=== PATIENT | male | born 1945 | race Caucasian/White ===

== ENCOUNTER 2017-05-27 10:33 | Observation (INO) | payer BC, OTHER ==
[2017-05-27] VITALS (8 sets, daily range): BP systolic 122–140; BP diastolic 64–72; PULSE 44–54; TEMP 36.4–36.8; O2SAT 95–99; Ht 182.9 cm; Wt 82.0 kg
[~2017-05-27] VITALS: Ht 182.9 cm; Wt 82.0 kg
[2017-05-27] MEDS: CEFAZOLIN 2000MG IV PUSH 10 ML IV SCH ×2 (06:00→14:04)
[~2017-05-27 10:33] MED LIST: LACTATED RINGER'S 1000ML IV SCH; PATIENT'S ALLERGY INFO NEEDS ENTERED SCH; PATIENT'S HEIGHT AND/OR WEIGHT NEEDED SCH; VANCOMYCIN 1GM/270ML NSS 270 ML IV SCH
[2017-05-27] MEDS ORDERED: DAPA1TAB5 PO (11:29)
[2017-05-27] MEDS ORDERED: CYAN500T13 PO (11:29)
[2017-05-27] MEDS ORDERED: ATOR10TA82 PO (11:29)
[2017-05-27] MEDS ORDERED: WARF2TAB8 PO (11:29)
[2017-05-27] MEDS ORDERED: VALS320T PO (11:29)
[2017-05-27] MEDS ORDERED: METO50TA7 PO (11:29)
[2017-05-27] MEDS ORDERED: LNX125 PO (11:29)
[2017-05-27] MEDS ORDERED: SPIR25TA PO (11:29)
[2017-05-27] MEDS ORDERED: FURO80TA63 PO (11:29)
[2017-05-27] MEDS ORDERED: FLM4 PO (11:29)
[2017-05-27] MEDS ORDERED: PRLSR20 PO (11:29)
[2017-05-27] MEDS ORDERED: PRS5 PO (11:29)
[2017-05-27] MEDS ORDERED: FRS/40 PO (11:31)
[2017-05-27] MEDS ORDERED: NTRGSL/4 UT (11:32)
[2017-05-27] MEDS ORDERED: INSU1INJ33 SC (11:39)
[2017-05-27] MEDS ORDERED: PROPOFOL IV EMULSION 10 MG/ML 20 ML VIAL IV ONE (11:51)
[2017-05-27] MEDS ORDERED: LIDOCAINE HCL 2% 2 ML VIAL (20MG/ML) ONE (11:51)
[2017-05-27] MEDS ORDERED: FENTANYL CITRATE INJ 50 MCG/1 ML 2 ML VIAL ONE ×2 (11:52→12:59)
[2017-05-27] MEDS ORDERED: MIDAZOLAM HCL 1 MG/ML 2ML VIAL ONE ×2 (11:52→12:41)
--- NOTE | 2017-05-27 12:11 | Procedure Note ---
Pre-Mod Sedation Assessment General Date of Moderate Sedation: May 27, 2017. Vital Signs: Vital Signs Past 12 Hours Date Time Temp Pulse Resp B/P (MAP) Pulse Ox O2 Delivery O2 Flow Rate FiO2 05/27/17 11:42 36.5 54 20 140/69 (92) 98 Room Air Review Cardiovascular: regular rate, rhythm, no murmur Abdomen: soft Lungs: lungs clear Airway Class: II Pre-Sedation Airway Assessment Oral Cavity: Dentures Short Thick Neck: No Hx of Sleep Apnea: Yes Smoking Status: Former Smoker Mallampati Classification: Class II ASA Classification: Class II Procedure Planning Contraindications-for Mod Sed: None Yes Notes The planned sedation has been discussed with the patient and consent obtained. I have identified the patient, determined the appropriateness of sedation and have assessed the patient immediately prior to the procedure. All medicine(s) and interventions are by my order.
--- NOTE | 2017-05-27 12:11 | History & Physical Bridge Note ---
H&P Re-Evaluation Bridge Note: I have examined the patient, reviewed the History & Physical and in the interval since the performance of the History & Physical I have noted the following changes of clinical significance: No changes noted
[2017-05-27] MEDS ORDERED: MIDAZOLAM HCL 5 MG/ML 1 ML VIAL ONE (12:59)
[2017-05-27] MEDS ORDERED: LIDOCAINE HCL 1% 20 ML VIAL ONE (12:59)
[2017-05-27] MEDS ORDERED: BUPIVACAINE 0.5 % 5 MG/1 ML MPF 30ML VIAL ONE (13:00)
[2017-05-27] MEDS ORDERED: BACITRACIN 50000 UNIT VIAL ONE (13:00)
--- NOTE | 2017-05-27 14:22 | Procedure Note ---
Post-Mod Sedation Assessment General Date of Moderate Sedation May 27, 2017. Vital Signs: Vital Signs Past 12 Hours Date Time Temp Pulse Resp B/P (MAP) Pulse Ox O2 Delivery O2 Flow Rate FiO2 05/27/17 14:15 60 16 118/72 (87) 94 Room Air 05/27/17 14:00 43 16 112/67 (82) 94 Room Air 05/27/17 11:42 36.5 54 20 140/69 (92) 98 Room Air Review - Discharge Criteria Vital Signs Stable: Yes Alert/Oriented/Conversant: Yes Returned to Baseline Mental St: Yes Nausea Absent/Minimal: Yes Pain/Discomfort/Absent/Minimal: Yes Normal/Baseline Respirations: Yes Active Bleeding?: No Pt Received D/C Instructions: N/A Prescriptions Given: None Specific Proced. D/C Criteria Distal Pulses Present (Cardiac: N/A Groin site assessed-Card Cath: N/A Voided Prior To Discharge: N/A Discharged Patients Adult Escort/Transportation: N/A
--- NOTE | 2017-05-27 14:23 | [facility] Post Operative Brief Note ---
Immediate Operative Summary Operative Date May 27, 2017. Pre-Operative Diagnosis icm Post-Operative Diagnosis same Procedure(s) Performed single chamber rate responsive ICD Surgeon sonal altamirano Commercial Painter Surgeon(s) none Estimated Blood Loss 5cc Findings see official report Fluids (cc crystalloids) 300cc Specimens none Drains none Anesthesia 2mg versed Complication(s) None Disposition PCU
[2017-05-27] MEDS ORDERED: NITROGLYCERIN 0.4 MG SL PER TAB CHARGE UT PRN (14:30)
[2017-05-27] MEDS ORDERED: ACETAMINOPHEN 325 MG TAB PO PRN (14:30)
--- NOTE | 2017-05-27 14:38 | Discharge Instructions ---
Discharge Instructions Date of Service May 27, 2017. Admission Reason for Admission: Ischemic Cardiomyopathy, A-Fib Discharge Discharge Diagnosis / Problem: ICM Discharge Goals Goal(s): Improve function Activity Recommendations Activity Limitations: as noted below Lifting Limitations: no more than 10 pounds (do not lift the left elbow over the left shoulder for 1 month; do not lift more than 10 pounds with the left arm for 2 weeks) Shower/Bathe: tomorrow Driving or Machine Use: resume 1 day after discharge . Instructions / Follow-Up Instructions / Follow-Up ACTIVITY RECOMMENDATIONS: * Do not raise affected arm over head for 4 weeks. SPECIAL CARE INSTRUCTIONS: * If bleeding occurs, apply direct pressure to area for 5 minutes. * Call your doctor if you have severe pain, fever, drainage or bleeding at site. * Keep dry for 24 hours. * Keep any scheduled doctor's appointment. * Implant Card - hand held device with website information given. SKIN IRRITATION: * You may experience some redness and/or swelling in the area where radiation was administered. If any skin irritation occurs, please contact your family physician. FOLLOW UP VISIT: Keep any scheduled doctor appointments. Current Hospital Diet Patient's current hospital diet: AHA Diet (Heart Healthy), Low Sodium Diet (2gm Na), Diabetes Type 2 Diet Discharge Diet Recommended Diet: AHA Diet (Heart Healthy), Low Sodium Diet (2gm Na), Diabetes Type 2 Diet Procedures Procedures Performed: single chamber rate responsive ICD Pending Studies Studies pending at discharge: no Medical Emergencies . Who to Call and When: Medical Emergencies: If at any time you feel your situation is an emergency, please call 911 immediately. . Non-Emergent Contact Non-Emergency issues call your: Regulatory Lead . . "Provider Documentation" section prepared by Angela Rojas. . VTE Core Measure Inpt VTE Proph given/why not?: Warfarin (Coumadin)
--- NOTE | 2017-05-27 14:42 | Discharge Summary ---
Discharge Summary Date of Service May 27, 2017. Discharge Summary Admission Date: 05/27/2017 Discharge Date: May 28, 2017 Discharge Disposition: Home Principal Diagnosis: ICM Secondary Diagnoses/Problems: Chronic atrial fibrillation on coumadin and toprol [id number] CAD h/o CABG x5 as well as PCIs in the past PVCs Chronic systolic heart NYHA Class III HTN Prior CVA DM CONNOR Procedures: single chamber ICD Medication Reconciliation Continued Medications: Atorvastatin (Lipitor) 10 Mg Tab 10 MG PO Q2D, TAB Cyanocobalamin (Vitamin B12 500MCG) 500 Mcg Tab 2500 MCG PO DAILY, TAB Dapagliflozin-Metformin HCl (Xigduo Xr 5-1000 mg) 1 Tab Tab 1 TAB PO DAILY Digoxin (Digoxin) 0.125 Mg Tab 0.125 MG PO DAILY Finasteride (Finasteride) 5 Mg Tab 5 MG PO DAILY Furosemide (Lasix) 80 Mg Tab 80 MG PO DAILY, TAB Furosemide (Lasix) 40 Mg Tab 40 MG PO NOON, TAB Insulin Degludec (Tresiba Flextouch) 100 Unit/Ml Inj 40 UNITS SC HS Metoprolol Succ (Toprol Xl) (Toprol-Xl) 50 Mg Tabcr 50 MG PO DAILY, #30 TAB Nitroglycerin (Nitrostat) 0.4 Mg Tab 0.4 MG UT PRN, BTL Omeprazole (Prilosec) 20 Mg Capcr 40 MG PO DAILY, CAP Spironolactone (Aldactone) 25 Mg Tab 25 MG PO DAILY, TAB Tamsulosin HCl (Tamsulosin HCl) 0.4 Mg Cap 0.4 MG PO DAILY Valsartan (Diovan) 320 Mg Tab 320 MG PO DAILY, TAB Warfarin Sod (Jantoven) 2 Mg Tab 2 MG PO DAILY, TAB 1 or 2 tabs daily as directed Admission Information Physical Exam (per Admitting): aaox3, NAD NC/AT, EOMI Supple, No JVD irregular, irregular S1/S2, bradycardic CTA b/l no w/r/r soft NT/ND No edema b/l LE Hospital Course Pt admitted for elective ICD implant due to ICM. He underwent procedure without any complications. Monitored overnight and discharged home in stable condition following morning. Patient seen and examined at the bedside today 05/28/17. He offers no complaints. See progress note. Patient will be discharged home with follow-up as scheduled. Activity restrictions reviewed with patient and his family prior to discharge. Shlomo Valentin DO, [facility] Total time spent on discharge = 30 minutes This includes examination of the patient, discharge planning, medication reconciliation, and communication with other providers. Discharge Instructions ACTIVITY RECOMMENDATIONS: * Do not raise affected arm over head for 4 weeks. SPECIAL CARE INSTRUCTIONS: * If bleeding occurs, apply direct pressure to area for 5 minutes. * Call your doctor if you have severe pain, fever, drainage or bleeding at site. * Keep dry for 24 hours. * Keep any scheduled doctor's appointment. * Implant Card - hand held device with website information given. SKIN IRRITATION: * You may experience some redness and/or swelling in the area where radiation was administered. If any skin irritation occurs, please contact your family physician. FOLLOW UP VISIT: Keep any scheduled doctor appointments.
[2017-05-27] MEDS ORDERED: GLUCOSE 10 TABS/TUBE PO PRN (15:15)
[2017-05-27] MEDS ORDERED: GLUCOSE 40% GEL 15 GM TUBE PO PRN (15:15)
[2017-05-27] MEDS ORDERED: DEXTROSE 50% 50 ML SYR IV PRN (15:15)
[2017-05-27] MEDS ORDERED: GLUCAGON FOR INJ 1 MG VIAL SQ PRN (15:15)
[2017-05-27 15:39] LABS: HEMATOCRIT 40.2 % (42-52); MEAN CELL VOLUME 92.8 fL (80-100); MEAN CORPUSCULAR HEMOGLOBIN 30.5 pg (25-34); MEAN PLATELET VOLUME 10.4 fL (7.4-10.4); PLATELET COUNT 250 K/uL (130-400); RED BLOOD COUNT 4.33 M/uL (4.7-6.1); WHITE BLOOD COUNT 8.27 K/uL (4.8-10.8)
[2017-05-27] MEDS ORDERED: IV FLUIDS COMPLETED PRN (15:45)
--- NOTE | 2017-05-27 15:48 | OPERATIVE REPORT ---
DATE OF OPERATION: 05/27/2017 PREOPERATIVE DIAGNOSIS: Ischemic cardiomyopathy. POSTOPERATIVE DIAGNOSIS: Same. PROCEDURE: Single chamber rate responsive implantable cardiac defibrillator under fluoroscopic guidance. SURGEON: Dr. Angela Rojas. WALLBOARD WORKER: None. ANESTHESIA: Monitored conscious sedation given under my supervision administered by Ramonita Dickey. Start time 1318, end time 1400. A total of 2 mg of Versed. IV FLUIDS: 300 cc. ANTIBIOTICS: Two grams of Ancef. ESTIMATED BLOOD LOSS: 5 mL. COMPLICATIONS: None. URINE OUTPUT: Not applicable. SPECIMENS: None. FINDINGS: See below. DRAINS: None. INDICATIONS: This is a 71-year-old gentleman who has a past medical history for coronary artery disease and underwent a CABG in the past with LYNCH to LAD, KRYSTAL to OM1, left-right radial to PDA. He also has had PCI to the LAD in 2003 as well as to the RCA in 2006, chronic atrial fibrillation on Coumadin and Toprol, CHADS2-VASc score is 5, chronic systolic heart failure, [place] Heart Association class 3, ischemic cardiomyopathy, ejection fraction 20%, hyperlipidemia, hypertension, PVCs, prior CVA, diabetes and obstructive sleep apnea. Due to his ischemic cardiomyopathy he was recommended an implantable cardiac defibrillator. CONSENT: Consent was obtained prior to the patient going into the electrophysiology lab. The patient was informed of risks, benefits, alternatives to the procedure. Risks include but not limited to sudden cardiac , cardiac arrhythmias, cerebrovascular accident, myocardial infarction, injury to the blood vessels, chamber of the heart, lungs, bleeding and infection. The patient understood these risks and agreed to the procedure as planned. Informed consent was obtained. DESCRIPTION OF THE PROCEDURE: The patient was brought into the electrophysiology lab in a fasting state. He was connected to continuous cardiac monitoring. A timeout was performed to ensure patient's identity and procedure correctly. The patient was prepped and draped over the left infraclavicular space in normal surgical standard fashion. Moderate conscious sedation was given throughout the procedure for patient's comfort level under my supervision. Hubert precautions maintained throughout the procedure. Twenty mL of 1% lidocaine, bupivacaine mixture were given in the left deltopectoral. Incision was made in left deltopectoral groove. Blunt dissection was performed down to identify the cephalic vein. The cephalic vein was identified and isolated using 0 silk ties. The vein was nicked with the 11 blade and a Glidewire was inserted without any resistance. A 9.5 Mongolian sheath was inserted over the Glidewire without any resistance, dilator and Glidewire were removed and the right ventricular defibrillator lead was then advanced into the right ventricle and positioned into the right ventricular apex under fluoroscopic guidance. There was adequate pacing and sensing thresholds and no diaphragmatic stimulation with high output pacing. The 9.5 Mongolian sheath was peeled away and lead was fixated to pectoralis muscle using 0 silk suture. An additional 10 mL of 1% lidocaine, bupivacaine mixture were given in the pectoralis fascia. Then using blunt dissection within the fascia over the pectoralis muscle, a defibrillator pocket was created. The pocket was flushed with copious amounts of bacitracin saline wash and inspected for hemostasis. The defibrillator was then attached to the leads making sure that the pins were in appropriate position, passed the set screws and set screws were then tightened. The defibrillator was then placed in the pocket, making sure that the leads were lying flat beneath the device. A stay stitch using 0 silk suture was used to secure the device to the pectoralis muscle. The incision was closed in a 3-layer fashion using 2-0 Vicryl interrupted sutures followed by 3-0 Vicryl interrupted suture followed by a 4-0 Monocryl running stitch and Dermabond was applied. EQUIPMENT: 1. [employer] Evera MRI XT VR SureScan, [id number], serial number [id number]. 2. Right ventricular lead was a Medtronic 6935M-62 cm, serial number [id number]. INTRAOPERATIVE TESTING: Right ventricular lead, R waves are 10.6 millivolts, impedance 676 ohms, threshold 0.4 volts at 0.5 milliamps. FINAL MEASUREMENTS THROUGH THE DEVICE: Right ventricular lead R-wave 10.6 millivolts, impedance 570 ohms, threshold 0.5 volts at 0.4 milliseconds. The RV coil impedance was 70 ohms. FINAL PARAMETERS: VVI 40. Right ventricular amplitude 3.5 volts, pulse width 0.4 milliseconds, sensitivity 0.3 millivolts. A VT monitor zone at 133 beats per minute with the detection intervals 32 with a VT zone at 176 beats per minute, detection interval of 16 and a VF zone at 200 beats per minute, detection interval 30 out of 40 beats. IMPRESSION: Successful implantation of single chamber rate responsive implantable cardiac defibrillator under fluoroscopic guidance secondary to ischemic cardiomyopathy. PLAN: Monitor patient overnight, 12-lead ECG, chest x-ray. He is not allowed to lift left elbow or left shoulder for 1 month. He cannot lift more than 10 pounds with the left arm for 2 weeks. He can shower tomorrow, let water run over the incision, do not scrub it. He can continue his home medications. He should follow up in our [place] office for device and wound check in 7-10 days. I attest to the content of the Intraoperative Record and any orders documented therein. Any exception s are noted below.
[2017-05-27 15:56] LABS: MEAN CORPUSCULAR HGB CONC 32.8 g/dl (32-36)
[2017-05-27] MEDS ORDERED: DIGOXIN 0.125 MG TAB PO SCH (16:00)
[2017-05-27 16:02] LABS: INR 1.5 (0.9-1.1); PROTHROMBIN TIME (PATIENT) 16.8 SECONDS (9.0-12.0)
[2017-05-27] MEDS ORDERED: WARFARIN SOD 4 MG TAB PO SCH (17:00)
[2017-05-27 17:26] LABS: CREATININE 1.14 mg/dl (0.60-1.40)
[2017-05-27] MEDS ORDERED: ATORVASTATIN 10 MG TAB PO SCH (20:00)
[2017-05-27] MEDS ORDERED: INSULIN GLARGINE SOLOSTAR 100 UNITS/ML 3 ML PEN SC SCH (21:00)
[2017-05-28 00:22] VITALS: BP 114/57; PULSE 42; TEMP 36.5; O2SAT 94
[2017-05-28 04:00] VITALS: O2SAT 95
[2017-05-28 04:06] VITALS: BP 113/64; PULSE 49; TEMP 36.6; O2SAT 95
[2017-05-28 06:37] LABS: INR 1.3 (0.9-1.1); PROTHROMBIN TIME (PATIENT) 14.3 SECONDS (9.0-12.0)
--- NOTE | 2017-05-28 07:22 | DIAGNOSTIC IMAGING REPORT ---
CHEST 2 VIEWS ROUTINE CLINICAL HISTORY: EXACT TIME ORDERED Evaluate for pneumothorax and lead placement COMPARISON STUDY: None FINDINGS: Prior median sternotomy. Massive cardiomegaly. Permanent unipolar cardiac pacemaker/fibrillator. Lungs are clear. Diaphragms smooth. IMPRESSION: Permanent unipolar cardiac pacemaker/fibrillator placed in good position. No evidence pneumothorax. The above report was generated using voice recognition software. It may contain grammatical, syntax or spelling errors. Electronically signed by: Enrique Callahan M.D. 05/28/2017 7:20 AM Dictated Date/Time: 05/28/2017 7:18 AM
[2017-05-28 07:52] VITALS: BP 136/66; PULSE 50; TEMP 36.9; O2SAT 97
[2017-05-28] MEDS: METOPROLOL SUCC 50MG EXT REL TAB PO SCH ×2 (08:03→10:25)
[2017-05-28] MEDS ORDERED: XIGDUO PO SCH (09:00)
[2017-05-28] MEDS ORDERED: TAMSULOSIN HCL 0.4 MG CAP PO SCH (09:00)
[2017-05-28] MEDS ORDERED: VALSARTAN 80 MG TAB PO SCH (09:00)
[2017-05-28] MEDS ORDERED: FUROSEMIDE 80 MG TAB PO SCH (09:00)
[2017-05-28] MEDS ORDERED: PANTOprazole SOD 40 MG TAB PO SCH (09:00)
[2017-05-28] MEDS ORDERED: CYANOCOBALAMIN 2,500 MCG SUBL TAB PO SCH (09:00)
[2017-05-28] MEDS ORDERED: SPIRONOLACTONE 25 MG TAB PO SCH (09:00)
[2017-05-28] MEDS ORDERED: FINASTERIDE 5 MG TAB PO SCH (09:00)
[2017-05-28 09:55] VITALS: BP 136/66; PULSE 50; TEMP 36.9; O2SAT 97
--- NOTE | 2017-05-28 11:09 | CARDIOLOGY PROGRESS NOTE ---
DATE: 05/28/2017 SUBJECTIVE: The patient is a 71-year-old gentleman who is admitted for elective single-chamber rate response and ICD implantation. The procedure was performed on May 27 without complications. Procedure was performed by Dr. Rojas. He has been resting comfortably overnight. The patient is feeling well this morning. Denies chest discomfort or unusual shortness of breath. He is anxiously awaiting discharge. Family is present at the bedside. Telemetry demonstrates atrial fibrillation with intermittent ventricular pacing. Pacemaker site is clean, dry, and intact. The patient denies lightheadedness, dizziness, orthopnea, PND, or lower extremity edema. He tolerated his a.m. meal. Offers no complaints at this time. REVIEW OF SYSTEMS: The pertinent positive noted above. A 4-system review including cardiovascular, musculoskeletal, neurologic, and gastroenterologic systems is otherwise negative. PERTINENT PAST MEDICAL HISTORY: Chronic systolic heart failure with ischemic cardiomyopathy, coronary artery disease with 3-vessel CABG in 2004, chronic atrial fibrillation on long-term anticoagulation as well as chart history of cerebrovascular accident. MEDICATIONS: Reviewed. LABORATORY DATA: Glucose today is 100. INR is 1.3. Post-procedural chest x-ray demonstrates permanent unipolar cardiac defibrillator in a good position without evidence of pneumothorax. PHYSICAL EXAMINATION: VITAL SIGNS: Temperature is 36.9 degrees centigrade, pulse 50 beats per minute and irregular, respiratory rate is 18 breaths per minute, blood pressure 136/66, SaO2 is 97% on room air. GENERAL: NAD, awake, alert and oriented x3, hard of hearing. HEENT: Mucous membranes moist. No scleral icterus. Conjunctivae pink. NECK: Supple. There is no JVD, no HJR, no carotid bruit. HEART: Irregular with a normal S1 and S2. No murmur auscultated. LUNGS: Clear without rales, rhonchi or wheeze. ABDOMEN: Soft, nontender. No rebound or guarding. Normal bowel sounds. EXTREMITIES: Lower extremities demonstrate no clubbing, cyanosis, or edema. CHEST WALL: Demonstrates a surgical site, which is clean, dry, and intact. No erythema or drainage. FINAL IMPRESSION: 1. A 71-year-old gentleman, postoperative day #1, single-chamber implantable cardioverter defibrillator implantation. 2. Ischemic cardiomyopathy with chronic compensated systolic heart failure. 3. Chronic atrial fibrillation with subtherapeutic INR. PLAN AND RECOMMENDATIONS: Post-procedural activity limitations discussed. The discharge summary reviewed as completed by Dr. Rojas. Follow up will be scheduled with the heart rhythm device clinic at [place]. The patient is scheduled to follow up with Rafy Pimentel PA-C, on June 03. He will continue current cardiovascular medications as noted prior to admission. Warfarin has been restarted. He will follow up with the anticoagulation clinic for further recommendations to maintain INR 2.0-3.0.
[2017-05-28] MEDS ORDERED: WARFARIN SOD 2 MG TAB PO SCH (16:00)
== END 2017-05-28 11:00 | disposition home or self-care (01) ==
LOC: C.ACU 10:33 → C.2T 14:21 → ENRESERV 14:25
PROVIDERS: ADMIT Internal Medicine; ATTEND Internal Medicine
DX: I25.5 Ischemic cardiomyopathy (principal); I48.91 Unspecified atrial fibrillation; I25.10 Atherosclerotic heart disease of native coronary artery without angina pectoris; I50.22 Chronic systolic (congestive) heart failure; E78.5 Hyperlipidemia, unspecified; I10 Essential (primary) hypertension; E11.9 Type 2 diabetes mellitus without complications; G47.33 Obstructive sleep apnea (adult) (pediatric); N40.1 Benign prostatic hyperplasia with lower urinary tract symptoms; N13.8 Other obstructive and reflux uropathy; J44.9 Chronic obstructive pulmonary disease, unspecified; Z87.891 Personal history of nicotine dependence; Z86.73 Personal history of transient ischemic attack (TIA), and cerebral infarction without residual deficits; Z79.01 Long term (current) use of anticoagulants; Z95.5 Presence of coronary angioplasty implant and graft; Z98.49 Cataract extraction status, unspecified eye; Z90.49 Acquired absence of other specified parts of digestive tract; Z82.49 Family history of ischemic heart disease and other diseases of the circulatory system; Z80.42 Family history of malignant neoplasm of prostate; Z83.3 Family history of diabetes mellitus